=== PATIENT | male | born 1990 | race Caucasian/White ===

== ENCOUNTER 2017-04-06 17:57 | Emergency (ER) | payer BC ==
--- NOTE | 2017-04-06 18:25 | Emergency Department Record ---
History of Present Illness - General Chief Complaint: Chest Pain Stated Complaint: CHEST PAIN,RAPID HEAT RATE Time Seen by Provider: 04/06/17 18:13 Mode of Arrival: Ambulatory - History of Present Illness Initial Comments: The patient is here due to L sided CP off and on for about a week. Today while swinging golf clubs about 3 hours ago it got worse. The pain is L sided and described as a heaviness. It is slightly worse with twisting and bending and does seem to be slightly relieved with sitting up. He denies any SOB, STACEY, sweating, pain radiating to his back,or nausea with the pain. He also has had similar pain for the last week off and on and had about 3 hours of the pain last night but it did resolve spontaneously. He has no hx of any CP with exertion and no recent illnesses. He also has no cardiac risk factors. The patient did notice his HR was elevated earlier which made him concerned but the pain and fast HR have now basically resolved. The pain was never pleuritic. MD Complaint: Chest pain Onset/Timin -: Hour(s) Onset: Other Pain Location: Left chest Pain Radiation: None Severity scale (1-10): 7 Quality: Heaviness Consistency: Constant Treatments Prior to Arrival: None - Related Data Home Medications Medication Instructions Recorded Confirmed Last Taken Dextroamphetamine/Amphetamine 20 mg PO DAILY 04/06/17 04/06/17 04/06/17 [Adderall] Allergies Allergy/AdvReac Type Severity Reaction Status Date / Time amoxicillin Allergy PT UNSURE Verified 04/06/17 18:13 OF REACTION Travel Screening - Travel/Exposure Within Last 30 Days Have you traveled within the last 30 days?: No - Travel/Exposure Within Last Year Have you traveled outside the [place] in the last year?: Yes Location Detail:: [place] - Additonal Travel Details Have you been exposed to anyone with a communicable illness?: No - Travel Symptoms Symptom Screening: None Review of Systems Constitutional: Denies: Chills, Fever Eyes: Denies: Eye discharge ENT: Denies: Congestion Respiratory: Denies: Cough, Dyspnea Cardiovascular: Denies: Arrhythmia Past Medical History - SOCIAL HISTORY Smoking Status: Never smoker Alcohol Use: Rare Drug Use: None - RESPIRATORY Hx Respiratory Disorders: No - CARDIOVASCULAR Hx Cardio Disorders: No - NEURO Hx Neuro Disorders: No - GI Hx GI Disorders: Yes Hx Reflux: Yes - Hx Genitourinary Disorders: No - ENDOCRINE Hx Endocrine Disorders: No - MUSCULOSKELETAL Hx Musculoskeletal Disorders: No - PSYCH Hx Psych Problems: Yes Comment:: adhd - HEMATOLOGY/ONCOLOGY Hx Hematology/Oncology Disorders: No Family Medical History Any Significant Family History?: No Physical Exam - General General Appearance: Alert, Oriented x3, Cooperative, No acute distress - Head Head exam: Atraumatic, Normocephalic, Normal inspection - Eye Eye exam: Normal appearance, PERRL, EOMI - Neck Neck exam: Normal inspection, Full ROM. negative: Tenderness - Respiratory Respiratory exam: Normal lung sounds bilaterally, Chest wall tenderness (The L sided CP is 100% reproducible with palpation of the L anterior chest wall.). negative: Respiratory distress - Cardiovascular Cardiovascular Exam: Regular rate, Normal rhythm, Normal heart sounds. negative : Diastolic murmur, Systolic murmur - GI/Abdominal GI/Abdominal exam: Soft, Normal bowel sounds. negative: Tenderness - Extremities Extremities exam: Normal inspection, Full ROM, Normal capillary refill. negative: Tenderness - Neurological Neurological exam: Alert. negative: Motor sensory deficit Course Vital Signs 04/06/17 18:01 Pulse Rate 114 H Respiratory 20 Rate Blood Pressure 135/90 Pulse Ox 98 - Reevaluation(s) Reevaluation #1: The patient is doing well. His care will be turned over to Dr. Alexander at 19:00 due to shift change. 04/06/17 18:52 Medical Decision Making - Lab Data Result diagrams: 04/06/17 18:27 04/06/17 18:27 Disposition Forms: Patient Portal Access Quality - Quality Measures Quality Measures: N/A - Blood Pressure Screening View Details: Yes Does Patient Have Any of the Following: No Blood Pressure Classification: Hypertensive Reading Systolic Measurement: 135 Diastolic Measurement: 90 Screening for High Blood Pressure: < Pre-Hypertensive BP, F/U Documented > [ [id number]] Pre-Hypertensive Follow-up Interventions: Referral to alternative/primary care provider.
[2017-04-06] MEDS ORDERED: KETOROLAC 30 MG/ML VIAL IVP ONE (18:27)
[2017-04-06] MEDS ORDERED: 0.9 % SODIUM CHLORIDE 1,000 ML BAG IV ONE (18:28)
[2017-04-06 18:37] LABS: BASO % 0.2 % (0-6); EOS % 1.7 % (0-6); GRAN % 63.8 % (47-80); HEMATOCRIT 43.1 % (42.0-52.0); HEMOGLOBIN 15.5 gm/dl (14.0-18.0); LYMPH % 25.9 % (16-45); MEAN CORPUSCULAR HEMOGLOBIN 30.2 pg (27-33); MEAN PLATELET VOLUME 8.9 fl (7.4-10.4); MONO % 8.4 % (0-9); PLATELET COUNT 344 K/uL (130-400); RED BLOOD COUNT 5.13 M/uL (4.40-5.70); RED CELL DISTRIBUTION WIDTH 13.2 % (11.5-14.5); WHITE BLOOD COUNT W/O DIFF 8.3 K/uL (4.2-12.2)
[2017-04-06 18:51] LABS: BLOOD UREA NITROGEN 17 mg/dL (6-20); CREATININE 0.8 mg/dL (0.7-1.2); EST GLOMERULAR FILTRATION RATE > 60 mL/min
[2017-04-06 18:53] LABS: GLUCOSE,RANDOM 89 mg/dL (74-109)
[2017-04-06 18:56] LABS: CREATINE PHOSPHOKINASE 144 U/L (39-308)
[2017-04-06 18:58] LABS: CKMB 1.4 ng/mL (<6.73)
--- NOTE | 2017-04-06 19:30 | Emergency Department Record ---
History of Present Illness - General Chief Complaint: Chest Pain Stated Complaint: CHEST PAIN,RAPID HEAT RATE Time Seen by Provider: 04/06/17 18:13 Mode of Arrival: Ambulatory - History of Present Illness Onset/Timin -: Hour(s) Onset: Other Pain Location: Left chest Pain Radiation: None Severity scale (1-10): 7 Quality: Heaviness Consistency: Constant Treatments Prior to Arrival: None - Related Data Home Medications Medication Instructions Recorded Confirmed Last Taken Dextroamphetamine/Amphetamine 20 mg PO DAILY 04/06/17 04/06/17 04/06/17 [Adderall] Previous Rx's Medication Instructions Recorded Naproxen [Naprosyn] 500 mg PO Q12H #30 tab 04/06/17 Allergies Allergy/AdvReac Type Severity Reaction Status Date / Time amoxicillin Allergy PT UNSURE Verified 04/06/17 18:13 OF REACTION Travel Screening - Travel/Exposure Within Last 30 Days Have you traveled within the last 30 days?: No - Travel/Exposure Within Last Year Have you traveled outside the [place] in the last year?: Yes Location Detail:: [place] - Additonal Travel Details Have you been exposed to anyone with a communicable illness?: No - Travel Symptoms Symptom Screening: None Review of Systems Constitutional: Denies: Chills, Fever Eyes: Denies: Eye discharge ENT: Denies: Congestion Respiratory: Denies: Cough, Dyspnea Cardiovascular: Denies: Arrhythmia Past Medical History - SOCIAL HISTORY Smoking Status: Never smoker Alcohol Use: Rare Drug Use: None - RESPIRATORY Hx Respiratory Disorders: No - CARDIOVASCULAR Hx Cardio Disorders: No - NEURO Hx Neuro Disorders: No - GI Hx GI Disorders: Yes Hx Reflux: Yes - Hx Genitourinary Disorders: No - ENDOCRINE Hx Endocrine Disorders: No - MUSCULOSKELETAL Hx Musculoskeletal Disorders: No - PSYCH Hx Psych Problems: Yes Comment:: adhd - HEMATOLOGY/ONCOLOGY Hx Hematology/Oncology Disorders: No Family Medical History Any Significant Family History?: No Course Vital Signs 04/06/17 04/06/17 18:01 19:06 Temperature 99.3 F Pulse Rate 114 H Pulse Rate [ 98 H Pulse Ox Probe] Respiratory 20 16 Rate Blood Pressure 135/90 Blood Pressure 121/82 [Left Arm] Pulse Ox 98 98 - Reevaluation(s) Reevaluation #1: 04/06/17 19:25 Labs reviewed and are grossly unremarkable for an acute cardiac process. CXR: No acute process Patient and his significant other were updated on all results, patient is resting comfortably at this time and all questions were answered. Pulse is down to 90 on re-examination. Patient does have TTP to the left mid-lower ribs anteriorly c/w chest wall strain on examination. Patient has no risk factors for PE, and EKG and laboratory studies are grossly unremarkable for an acute process. Symptoms are likely the result of a musculo-skeletal process given his symptoms began while golfing. Will treat with anti-inflammatory with instructions for follow-up with his PCP in 1-3 days as directed. 04/06/17 23:12 Medical Decision Making - Lab Data Result diagrams: 04/06/17 18:27 04/06/17 18:27 Lab Results 04/06/17 04/06/17 04/06/17 Range/Units 18:27 18:27 18:27 WBC 8.3 (4.2-12.2) K/uL RBC 5.13 (4.40-5.70) M/uL Hgb 15.5 (14.0-18.0) gm/dl Hct 43.1 (42.0-52.0) % MCV 84.0 (81-97) fl MCH 30.2 (27-33) pg MCHC 36.0 (32-36) g/dl RDW 13.2 (11.5-14.5) % Plt Count 344 (130-400) K/uL MPV 8.9 (7.4-10.4) fl Gran % 63.8 (47-80) % Lymphocytes % 25.9 (16-45) % Monocytes % 8.4 (0-9) % Eosinophils % 1.7 (0-6) % Basophils % 0.2 (0-6) % ESR 1 (0-15) mm/hr Sodium 142 (136-145) mmol/L Potassium 4.0 (3.4-4.5) mmol/L Chloride 100 (98-107) mmol/L Carbon Dioxide 31.0 H (22-29) mmol/L Anion Gap 11.0 (7-16) BUN 17 (6-20) mg/dL Creatinine 0.8 (0.7-1.2) mg/dL Estimated GFR > 60 mL/min Random Glucose 89 (74-109) mg/dL Calcium 9.9 (8.6-10.0) mg/dL Creatine Kinase 144 (39-308) U/L CK-MB (CK-2) 1.4 (<6.73) ng/mL Troponin T < 0.010 (0-0.010) ng/mL C-Reactive Protein (<0.5) mg/dL 04/06/17 Range/Units 18:27 WBC (4.2-12.2) K/uL RBC (4.40-5.70) M/uL Hgb (14.0-18.0) gm/dl Hct (42.0-52.0) % MCV (81-97) fl MCH (27-33) pg MCHC (32-36) g/dl RDW (11.5-14.5) % Plt Count (130-400) K/uL MPV (7.4-10.4) fl Gran % (47-80) % Lymphocytes % (16-45) % Monocytes % (0-9) % Eosinophils % (0-6) % Basophils % (0-6) % ESR (0-15) mm/hr Sodium (136-145) mmol/L Potassium (3.4-4.5) mmol/L Chloride (98-107) mmol/L Carbon Dioxide (22-29) mmol/L Anion Gap (7-16) BUN (6-20) mg/dL Creatinine (0.7-1.2) mg/dL Estimated GFR mL/min Random Glucose (74-109) mg/dL Calcium (8.6-10.0) mg/dL Creatine Kinase (39-308) U/L CK-MB (CK-2) (<6.73) ng/mL Troponin T (0-0.010) ng/mL C-Reactive Protein < 0.30 (<0.5) mg/dL Disposition Disposition: Discharge Clinical Impression: Chest pain Qualifiers: Chest pain type: unspecified Qualified Code(s): R07.9 - Chest pain, unspecified Disposition: Home, Self-Care Condition: (2) Stable Instructions: Chest Wall Pain (ED) Additional Instructions: Return to ED if your symptoms worsen or if you have any concerns. Naprosyn as directed. Follow-up with your family doctor in 1-3 days as directed. Prescriptions: Naproxen [Naprosyn] 500 mg PO Q12H #30 tab.dr Forms: Patient Portal Access Time of Disposition: 19:31 Quality - Quality Measures Quality Measures: N/A - Blood Pressure Screening Does Patient Have Any of the Following: No Blood Pressure Classification: Normal BP Reading Systolic Measurement: 113 Diastolic Measurement: 74 Screening for High Blood Pressure: < Normal BP, F/U Not Required > [G8789]
--- NOTE | 2017-04-07 10:37 | RADIOLOGY REPORT ---
EXAM: CHEST, TWO VIEWS HISTORY: PATIENT HAS CHEST PAIN. TECHNIQUE: Two views of the chest are provided without comparison studies. FINDINGS: The cardiomediastinal silhouette is within normal limits for size and contour. The carmen appear unremarkable. There is no radiographic evidence of a focal infiltrate or pleural effusion. IMPRESSION: NO RADIOGRAPHIC EVIDENCE OF AN ACUTE INTRATHORACIC PROCESS. JOB NUMBER: [id number] MTDD
== END 2017-04-06 19:35 | disposition home or self-care (01) ==
LOC: ER 17:57
DX: R07.89 Other chest pain (principal)
CPT/HCPCS: 99284 ×2; 96374; 82550; 85025; 85651; 86140; 82553; 80048; 84484; 71020; 93005; 93010; J1885; J7030